=== PATIENT | female | born 2000 | race Caucasian/White ===

== ENCOUNTER 2020-12-08 14:16 | Emergency (ER) | payer OTHER ==
[~2020-12-08] VITALS: Ht 157.5 cm; Wt 59.0 kg
--- NOTE | 2020-12-08 14:23 | NUR ---
PT TAKEN TO BED 8.
[2020-12-08 14:28] VITALS: BP 121/67
--- NOTE | 2020-12-08 14:31 | NUR ---
20 Y/O FEMALE C/O SORE THROAT X2 DAYS. DENIES ANY RECENT FEVER OR COUGH. ALSO C/O BILAT EAR PAIN AND HEADACHE. PT STATES SHARP PAIN UPON SWALLOWING 8/10 PAIN. LT TONSIL SIZE 2+ MOTHER AT BEDSIDE. MEDHX: DENIES NKA
--- NOTE | 2020-12-08 14:38 | NUR ---
DR PIERRE AT BEDSIDE EXAMINING PT
--- NOTE | 2020-12-08 15:13 | NUR ---
STREP AND ARMAND SWABS COLLCETD, DROPPED OFF AT LAB WITH VERONA RIVAS
[2020-12-08] MEDS ORDERED: NAPR-54 PO (15:52)
[2020-12-08] MEDS ORDERED: ROBAC PO (15:52)
[2020-12-08] MEDS ORDERED: KETOROLAC 15 MG/ML VIAL IM ONE (16:05)
[2020-12-08 16:16] VITALS: BP 121/67
--- NOTE | 2020-12-08 16:16 | NUR ---
Patient discharged with v/s stable. Written and verbal after care instructions given and explained. Patient alert, oriented and verbalized understanding of instructions. Ambulatory with steady gait. All questions addressed prior to discharge. ID band removed. Patient advised to follow up with PMD. Rx of NAPROSYN AND GUAIFENESIN/COEDINE SYRUP given. Patient educated on indication of medication including possible reaction and side effects. Opportunity to ask questions provided and answered.
== END 2020-12-08 16:16 | disposition home or self-care (01) ==
LOC: MED 14:16
DX: J02.9 Acute pharyngitis, unspecified (principal); Z20.822 Contact with and (suspected) exposure to COVID-19
CPT/HCPCS: 81002; 81025; 87081; 96372; 99283

== ENCOUNTER 2021-01-15 21:50 | Emergency (ER) | payer BC, OTHER ==
[~2021-01-15] VITALS: Ht 160 cm; Wt 59.0 kg
[~2021-01-15 21:50] MED LIST: NAPR-54 PO; ROBAC PO
[2021-01-15 22:40] VITALS: BP 108/70
--- NOTE | 2021-01-15 22:40 | NUR ---
TO TENT AMBULATORY
[2021-01-15] MEDS ORDERED: ONDA-24 SL (23:49)
--- NOTE | 2021-01-16 00:05 | NUR ---
NOVEL SWAB COLLECTED AND TAKEN TO LAB. PT AMBULATING TO RESTROOM WITH STEADY AND EVEN GAIT TO COLLECT URINE SAMPLE.
[2021-01-16] MEDS ORDERED: ONDA-24 SL (01:17)
== END 2021-01-16 00:20 | disposition home or self-care (01) ==
LOC: MED 21:50
DX: U07.1 COVID-19 (principal); R11.2 Nausea with vomiting, unspecified; Z79.899 Other long term (current) drug therapy; Z79.1 Long term (current) use of non-steroidal anti-inflammatories (NSAID)
CPT/HCPCS: 81025; 99283; U0003

== ENCOUNTER 2022-12-21 15:12 | Emergency (ER) | payer BC, OTHER ==
[~2022-12-21] VITALS: Ht 160 cm; Wt 65.8 kg
[~2022-12-21 15:12] MED LIST changes: +ONDA-188 SL
[2022-12-21 15:17] VITALS: BP 101/49; PULSE 107; RESP 20; TEMP 98.6; O2SAT 99
[2022-12-21] MEDS ORDERED: ONDANSETRON 4 MG ODT PO ONE (15:50)
--- NOTE | 2022-12-21 16:06 | NUR ---
22YO F BIB MOTHER PRESENTS W/FEVER X 3 DAYS OFF AND ON, CHILLS, NAUSEA, VOMITING, SWEATING, DALTON RT SIDE, WORSE SINCE LAST NIGHT. DENIES DIARRHEA, SOB, CP, COUGH. NAD NOTED, SAFETY MAINTAINED, CALL LIGHT IN REACH. HX:DENIES NKA
[2022-12-21] MEDS ORDERED: IBUP-2213 PO (16:20)
[2022-12-21] MEDS ORDERED: PENI500T20 PO (16:20)
[2022-12-21] MEDS ORDERED: LIDO15SO4 PO (16:20)
[2022-12-21] MEDS ORDERED: ONDA-188 PO (16:20)
--- NOTE | 2022-12-21 16:41 | NUR ---
Patient discharged with v/s stable. Written and verbal after care instructions given and explained. Patient alert, oriented and verbalized understanding of instructions. Ambulatory with steady gait. All questions addressed prior to discharge. ID band removed. Patient advised to follow up with PMD. Rx of IBUPROFEN, LIDOCAINE VISCOUS, ZOFRAN, PENICILLINV POTASSIUM given. Opportunity to ask questions provided and answered.
--- NOTE | 2022-12-21 16:44 | NUR ---
The patient's care was reviewed and supervised by FLORI MATHIS RN.
== END 2022-12-21 16:41 | disposition home or self-care (01) ==
LOC: MED 15:12
DX: J02.0 Streptococcal pharyngitis (principal); R50.9 Fever, unspecified; R51.9 Headache, unspecified; Z79.899 Other long term (current) drug therapy
CPT/HCPCS: 81025; 99283; Q0162

== ENCOUNTER 2023-02-17 12:49 | Emergency (ER) | payer OTHER ==
[~2023-02-17] VITALS: Ht 160 cm; Wt 63.5 kg
[~2023-02-17 12:49] MED LIST changes: +IBUP-2213 PO; +LIDO15SO4 PO; +ONDA-188 PO; +PENI500T20 PO
[2023-02-17 13:19] VITALS: BP 98/79; PULSE 105; RESP 20; TEMP 103.1; O2SAT 98
[2023-02-17] MEDS ORDERED: IBUPROFEN 600 MG TAB PO ONE (13:25)
[2023-02-17 14:12] LABS: FLU A ANTIGEN negative (NEGATIVE); FLU B ANTIGEN negative (NEGATIVE)
[2023-02-17] MEDS ORDERED: PROM118S5 PO (14:23)
[2023-02-17] MEDS ORDERED: IBUP-2213 PO (14:23)
[2023-02-17] MEDS ORDERED: ONDA-188 PO (14:23)
[2023-02-17] MEDS ORDERED: ACET-9882 PO (14:23)
[2023-02-17 14:40] VITALS: BP 101/78; PULSE 88; RESP 18; TEMP 97.7; O2SAT 99
== END 2023-02-17 14:41 | disposition home or self-care (01) ==
LOC: MED 12:49
DX: B34.9 Viral infection, unspecified (principal); Z20.822 Contact with and (suspected) exposure to COVID-19; Z79.899 Other long term (current) drug therapy
CPT/HCPCS: 81002; 81025; 99283